=== PATIENT | male | born 1970 | race Caucasian/White ===

== ENCOUNTER 2016-03-16 19:43 | Emergency (ER) | payer OTHER ==
[2016-03-16] MEDS ORDERED: PROPARACAINE 0.5% 15 ML OPHT DROP ONE (19:55)
[2016-03-16 20:02] VITALS: O2SAT 96
--- NOTE | 2016-03-16 20:29 | UCPHY ---
H & P Time Seen by Provider: 03/16/16 19:47 Patient Type: New HPI/ROS: 45-year-old male presents complaining of foreign body in his right eye, he has no idea what it is or when he may have gotten although he only began have eye irritation today. He has manipulated it at home even tried a Q-tip on his eye and has been unable to remove it himself His family restrained him when he considered using tweezers. Review of systems General no fever no chills no weakness HEENT positive eye pain no eye discharge. Positive eye redness, no sore throat Respiratory no cough, no shortness of breath Cardiac no chest pain, no peripheral edema GI no abdominal pain, no diarrhea, no constipation, no nausea, no vomiting no flank pain, no hematuria, no dysuria Musculoskeletal no myalgias, no joint pain Heme no easy bruising, no easy bleeding Endo no polyuria, no polydipsia Skin no rashes, no pruritus Neuro no syncope, no dizziness, no headaches Psych is no suicidal ideation, no homicidal ideation Past Medical/Surgical History: Noncontributory Social History: has 2 children Home has an acupuncture practice Smoking Status: Never smoked Physical Exam: Alert and oriented in no acute distress nontoxic appearance, afebrile Atraumatic normocephalic Neck no JVD Lungs clear to auscultation, no respiratory distress Heart regular rate and rhythm Extremities no cyanosis clubbing edema Right eye mild conjunctival erythema Very tiny foreign body noted at 7:00 p.m. on the cornea Fluorescein uptake of foreign body and surrounding area relatively small no other evidence of abrasion No pooling of fluorescein Constitutional: Initial Vital Signs Temperature (C) 36.1 C 03/16/16 20:00 Heart Rate 78 03/16/16 20:00 Respiratory Rate 18 03/16/16 20:00 Blood Pressure 160/80 H 03/16/16 20:00 O2 Sat (%) 96 03/16/16 20:00 O2 Delivery Mode Room Air Medical Decision Making Procedures: After using tetracaine to anesthetize the corneal surface, and after exam with slit lamp as well as fluorescein stain to identify the exact location of the foreign body I used a 27 gauge needle bevel up and attempted to remove the foreign body. Patient tolerated procedure well, however I was only able to remove approximately half of the foreign body Fluorescein stain after attempted foreign body removal shows corneal abrasion at site of foreign body ED Course/Re-evaluation: Patient seen and evaluated for corneal foreign body right eye Attempted removal was able to remove only partial Plan Patient to follow up with Ophthalmology in 1 day to have remainder foreign body removed Started on tobramycin 1 drop q.4 hours - Data Points Medications Given: Discontinued Medications Tobramycin (Tobrex 0.3%) 1 drops RTEYE Q4HRS WHILE AWAKE FANY Stop: 04/15/16 21:59 Last Admin: 03/16/16 21:41 Dose: Not Given Departure - Departure Disposition: Home, Routine, Self-Care Clinical Impression: Corneal abrasion, Corneal foreign body with residual material Condition: Good Instructions: Corneal Abrasion (ED) Referrals: NONE *PRIMARY CARE P,. [Primary Care Provider] - As per Instructions Theresa Mccollum MD [Non Staff Provider (MD)] - As per Instructions - PQRS PQRS Measurement: na
[2016-03-16] MEDS ORDERED: TOBRAMYCIN 0.3% SOLN PREPACK OPHT.BTL TAKEHOME ONE (21:20)
[2016-03-16 21:52] VITALS: BP 155/86; PULSE 75; RESP 20; TEMP 98.2
[2016-03-16] MEDS ORDERED: TOBRAMYCIN 0.3% 5 ML OPHT.BTL RTEYE SCH (22:00)
== END 2016-03-16 21:40 | disposition home or self-care (01) ==
LOC: CED 19:43
PROC: 08C8XZZ Extirpation of Matter from Right Cornea, External Approach (ICD-10-PCS; principal; 2016-03-16)
DX: T15.01XA Foreign body in cornea, right eye, initial encounter (principal); X58.XXXA Exposure to other specified factors, initial encounter
CPT/HCPCS: 65220-PO; 99203-PO; G0463-PO